=== PATIENT | female | born 1955 | race Two or more races ===

== ENCOUNTER → 2016-11-26 | Outpatient (CLI) | payer MEDICAID ==
--- NOTE | 2016-11-26 08:53 | MR ---
MRI Cervical Spine Without Contrast Indication: Neck pain. Technique: Sagittal T2, T1, and STIR weighted imaging. Stacked axial T2-weighted imaging was obtained from the foramen magnum through the T1 vertebral body. Comparison: Four view cervical spine dated October 08, 2016. Findings: The cervical spine is anatomically aligned. Bone marrow signal is normal. No bone marrow re placing lesion, compression fracture, or paraspinal soft tissue mass. Synovial hypertrophy at the den s results in minimal narrowing of the central canal at the foramen magnum. The posterior fossa and ce rvicooccipital junction are normal. The cervical spinal cord has normal caliber and signal. C2-C3: Widely patent central canal and neural foramina. C3-C4: Facet hypertrophy results in minimal right neural foraminal narrowing. The central canal and l eft neural foramen are widely patent. C4-C5: A tiny left paracentral disk herniation (protrusion) results in mild central canal narrowing. The disk protrusion abuts and minimally deforms the left paramedian ventral aspect of the cord (best demonstrated on image 47 of the axial T2 sequence, series 6 and image 5 of the sagittal T2 sequence). Facet hypertrophy and uncovertebral spurs result in moderate right and mild left neural foraminal st enosis. C5-C6: Facet hypertrophy and uncovertebral spurs result in mild to moderate bilateral neural foramina l narrowing, minimally worse right than left. Minimal thickening of the posterior longitudinal ligame nt results in minimal central canal narrowing. C6-C7: A left paracentral subligamentous disk herniation (protrusion) combined with facet hypertrophy and ligamentum flavum thickening results in mild central canal narrowing. Uncovertebral and facet sp urs result in mild bilateral neural foraminal narrowing. C7-T1: Widely patent central canal and neural foramina. Impression: 1. Small left paramedian disk herniation (protrusion) at C4-C5 resulting in mild narrowing of the kaykay tral canal and minimal mass effect upon the spinal cord. No underlying cord atrophy or gliosis. 2. Small left paramedian disk herniation (protrusion) at C6-C7 results in minimal mass effect upon th e left central aspect of the spinal cord. No cord gliosis or atrophy at this level. 3. Mild to moderate bilateral neural foraminal narrowing at C5-C6 and on the right at C4-C5.
== END ==
LOC: FIMAGING 06:55
PROVIDERS: ATTEND Clinical Nurse Specialist
DX: M54.2 Cervicalgia (principal); M50.221 Other cervical disc displacement at C4-C5 level; M50.223 Other cervical disc displacement at C6-C7 level

== ENCOUNTER 2016-12-13 08:41 | Day surgery (SDC) | payer MEDICAID ==
[2016-12-13] MEDS ORDERED: LIDOCAINE 1% 5 ML SDV ONE (08:55)
[2016-12-13] MEDS ORDERED: LR 1,000 ML IV SCH (09:00)
[2016-12-13] MEDS ORDERED: TRIAMCINOLONE ACETONIDE 40 MG/ML VIAL ONE (09:37)
[2016-12-13] MEDS ORDERED: IOPAMIDOL (ISOVUE-M 200) 20 ML VIAL IV ONE (09:37)
[2016-12-13] MEDS ORDERED: LIDOCAINE 1% 30 ML SDV ONE (09:37)
[2016-12-13] MEDS ORDERED: NA BICARBONATE 50 MEQ/50 ML VIAL ONE (09:37)
[2016-12-13] MEDS ORDERED: BUPIVACAINE 0.25% 30 ML SDV ONE (09:37)
[2016-12-13] MEDS ORDERED: DEXAMETHASONE 10 MG/ML VIAL ONE (09:37)
--- NOTE | 2016-12-13 14:04 | DX ---
Fluoroscopy HISTORY: Spinal injection by Dr. Nova. FINDINGS: Fluoroscopy time: 39 seconds. Estimated dose in milligray: 4.3. FINDINGS: A single frontal spot image demonstrates a needle at the level of the C7-T1 interlaminar sp destiny. There is some contrast in the soft tissues immediately around the needle. There is also some con trast in the upper cervical epidural space. IMPRESSION: Cervical injection via C7-T1 interlaminar space.
--- NOTE | 2016-12-18 03:28 | GPN ---
[f rep st] PROCEDURE NOTE DATE OF PROCEDURE: 12/13/2016 HISTORY OF PRESENT ILLNESS: The patient presents for cervical epidural steroid injection. She is no t taking any blood thinners or antibiotics and denies allergies to shellfish, latex, contrast dye and iodine. She denies . PROCEDURE PERFORMED: C7-T1 interlaminar epidural steroid injection with fluoroscopy. DIAGNOSIS: Cervical radiculopathy. SITE: Upper back. PROVIDER: Tiffanie Nova MD ANESTHESIA: Local. COMPLICATIONS: None. ESTIMATED BLOOD LOSS: Minimal. PREPROCEDURE CONSENT: The preprocedure consent was obtained after the risks, benefits and alternativ es of the procedure were explained to the patient. The risks include but are not limited to nerve in jury, spinal cord injury, paralysis, headache, muscle injury, infection, bleeding, increased pain, de ath and any other unforeseen consequences. The patient agreed and signed the consent for the procedu re. PROCEDURE VERIFICATION AND TIME-OUT: Verbal verification of patient, site and procedure was done. A ll present were in agreement. Please see nursing notes for time of time-out. PROCEDURE NOTE: The patient was identified and placed in a prone position. Under fluoroscopic mimi nce, the C7-T1 interspace was isolated and the patient's back was prepped and draped in a sterile fas hion with ChloraPrep and a fenestrated drape. Then, 2 mL of 1% lidocaine were injected subcutaneousl y over the above location. After adequate local analgesia was obtained, an 18-gauge 3.5 inch Tuohy n eedle was advanced by a [id number] into the epidural space using intermittent biplanar fluoro scopic guidance. The needle position was confirmed to be correct with biplanar fluoroscopy. After n egative aspiration for blood and cerebrospinal fluid, 0.5 mL of nonionic contrast dye was injected. Good flow of dye was noted in the epidural space. Then 5 mL of a solution containing 15 mg of dexame thasone in preservative free normal saline was injected in 1 mL increments with negative aspiration i n between, and no pain or paresthesia upon injection. The needle was re styletted and removed. The patient tolerated the procedure well and was monitored for 30 more minutes with no apparent compl ications, then was discharged home in good condition with a ride. She experienced no side effects fr om sedation and was instructed not to drive, operate heavy machinery or make any life-altering decisi ons. She was instructed to call our clinic with non urgent concerns or 911 in an emergency. In part icular she was taught that new weakness or numbness, changes in bowel or bladder control, fever and s welling or redness over the injection site are all urgent concerns that would warrant calling 911 or going to an emergency care facility. She verbalized understanding and was discharged home with postp rocedure instructions. ASSESSMENT/PLAN: C7-T1 intralaminar epidural steroid injection done today without complications. Th e patient will return to our clinic for followup and we will consider repeating the injection as need ed. /[id number]/MODL
== END 2016-12-13 10:40 | disposition home or self-care (01) ==
LOC: FSGY 08:41
PROVIDERS: ATTEND Anesthesiology
PROC: 3E0S33Z Introduction of Anti-inflammatory into Epidural Space, Percutaneous Approach (ICD-10-PCS; principal; 2016-12-13 10:00)
DX: M54.12 Radiculopathy, cervical region (principal); M50.30 Other cervical disc degeneration, unspecified cervical region; M51.36 Other intervertebral disc degeneration, lumbar region; M79.7 Fibromyalgia; G62.9 Polyneuropathy, unspecified; F32.9 Major depressive disorder, single episode, unspecified; F41.9 Anxiety disorder, unspecified
CPT/HCPCS: J3301; Q9966

== ENCOUNTER → 2017-05-22 | Outpatient (CLI) | payer MEDICAID | LOC: FIMAGING 07:40 | PROVIDERS: ATTEND Physician Assistant | DX: Z12.31 Encounter for screening mammogram for malignant neoplasm of breast (principal) | CPT/HCPCS: G0202 ==

== ENCOUNTER → 2017-10-10 | Outpatient (CLI) | payer MEDICAID | LOC: FIMAGING 09-18 15:39 | PROVIDERS: ATTEND Internal Medicine | DX: K59.00 Constipation, unspecified (principal) ==

== ENCOUNTER → 2018-02-21 | Outpatient (CLI) | payer MEDICAID | LOC: FIMAGING 09:06 | PROVIDERS: ATTEND Internal Medicine | DX: R10.2 Pelvic and perineal pain (principal); Z90.710 Acquired absence of both cervix and uterus ==

== ENCOUNTER → 2018-05-20 | Outpatient (CLI) | payer MEDICAID | LOC: FIMAGING 07:26 | PROVIDERS: ATTEND Orthopaedic Surgery Sports Medicine | DX: Z12.31 Encounter for screening mammogram for malignant neoplasm of breast (principal); Z80.3 Family history of malignant neoplasm of breast ==